=== PATIENT | male | born 1955 | race Caucasian/White ===

== ENCOUNTER 2021-01-04 07:49 | Day surgery (SDC) | payer OTHER ==
[~2021-01-04] VITALS: Ht 175.3 cm; Wt 109.5 kg
--- NOTE | 2021-01-04 08:15 | NUR ---
01/04/21 0815 Gianna Terry 1 TRY RIGHT HAND VALVE
== END 2021-01-04 10:17 | disposition home or self-care (01) ==
LOC: ORSCSDS 07:49
PROVIDERS: Student in an Organized Health Care Education/Training Program
PROC: 0DB68ZX Excision of Stomach, Via Natural or Artificial Opening Endoscopic, Diagnostic (ICD-10-PCS; principal; 2021-01-04 09:00)
PROC: 0DB58ZX Excision of Esophagus, Via Natural or Artificial Opening Endoscopic, Diagnostic (ICD-10-PCS; principal; 2021-01-04 09:00)
PROC: 0DBN8ZX Excision of Sigmoid Colon, Via Natural or Artificial Opening Endoscopic, Diagnostic (ICD-10-PCS; principal; 2021-01-04 09:00)
DX: K92.1 Melena (principal); D12.5 Benign neoplasm of sigmoid colon; K22.70 Barrett's esophagus without dysplasia; K21.9 Gastro-esophageal reflux disease without esophagitis; K57.30 Diverticulosis of large intestine without perforation or abscess without bleeding; K62.89 Other specified diseases of anus and rectum; K64.8 Other hemorrhoids; E66.9 Obesity, unspecified; Z68.36 Body mass index [BMI] 36.0-36.9, adult
CPT/HCPCS: 88305; 88342; J2405; J2704; J7120

== ENCOUNTER 2022-02-04 07:36 | Day surgery (SDC) | payer OTHER ==
[~2022-02-04] VITALS: Ht 175.3 cm; Wt 109.2 kg
[2022-02-04] MEDS ORDERED: OMEP20ER (07:55)
--- NOTE | 2022-02-04 09:13 | NUR ---
02/04/22 0913 MATTHIAS EMANUEL CHECKED ON PT AT 9AM. STILL AT BEDSIDE. DOING WELL.
== END 2022-02-04 10:35 | disposition home or self-care (01) ==
LOC: ORSCSDS 07:36
PROVIDERS: Student in an Organized Health Care Education/Training Program
PROC: 0DBE8ZX Excision of Large Intestine, Via Natural or Artificial Opening Endoscopic, Diagnostic (ICD-10-PCS; principal; 2022-02-04 09:00)
PROC: 0DBN8ZX Excision of Sigmoid Colon, Via Natural or Artificial Opening Endoscopic, Diagnostic (ICD-10-PCS; principal; 2022-02-04 09:00)
DX: Z12.11 Encounter for screening for malignant neoplasm of colon (principal); Z86.010 Personal history of colon polyps; K63.5 Polyp of colon; K57.30 Diverticulosis of large intestine without perforation or abscess without bleeding; K64.8 Other hemorrhoids; K62.89 Other specified diseases of anus and rectum; Z85.51 Personal history of malignant neoplasm of bladder; K21.9 Gastro-esophageal reflux disease without esophagitis; Z79.899 Other long term (current) drug therapy
CPT/HCPCS: 88305; J2704; J7120

== ENCOUNTER 2025-11-11 10:09 | Inpatient (IN) | payer OTHER ==
[~2025-11-11] VITALS: Ht 175.3 cm; Wt 106.6 kg
[~2025-11-11 10:09] MED LIST: OMEP20ER PO
[2025-11-11] MEDS ORDERED: ROSUVASTATIN CA10 MG PO (12:35)
[2025-11-11 12:41] LABS: Hematocrit 36.8 % (37.0-53.0); Hemoglobin 12.2 g/dL (13.5-17.5); Mean Corpuscular HGB Conc 33.2 g/dL (31.5-36.5); Mean Corpuscular Volume 89 fL (80-100); NRBC ABSOLUTE 0.00 K/mm3 (0.00-0.02); NRBC Auto 0.0 /100 WBC (0.0-0.2); Platelet Count 385 K/mm3 (150-400); RDW Coefficient Variation 14.4 % (11.7-14.2); RDW Standard Deviation 47.2 fL (35.1-46.3)
[2025-11-11 12:57] LABS: Alanine Aminotransfer (ALT/SGP 594.0 U/L (12-78); Albumin, Blood 3.1 g/dL (3.4-5.0); Albumin/Globulin Ratio 0.7 (0.8-1.8); Anion Gap 12.0 mmol/L (3-11); Aspartate Aminotrans (AST/SGOT 389.0 U/L (12-37); Bilirubin, Total 3.3 mg/dL (0.1-1.0); Blood Urea Nitrogen 20.0 mg/dL (8-24); CO2, Blood 26.0 mmol/L (21-32); Calcium, Blood 9.5 mg/dL (8.5-10.1); Chloride, Blood 105.0 mmol/L (98-108); Creatinine, Blood 0.91 mg/dL (0.60-1.20); Globulin, Blood 4.2 g/dL (2.2-4.0); Glucose, Blood 199.0 mg/dL (70-99); Potassium, Blood 3.9 mmol/L (3.5-5.5); Sodium, Blood 139.0 mmol/L (136-145); Total Protein, Blood 7.3 g/dL (6.4-8.2)
[2025-11-11 13:17] LABS: BAND PERCENT MAN 2 % (0-8); BASOPHILS ABSOLUTE MAN 0.00 K/mm3 (0.00-0.23); BASOPHILS PERCENT MAN 0 % (0-2); EOSINOPHILS ABSOLUTE MAN 0.43 K/mm3 (0.00-0.68); EOSINOPHILS PERCENT MAN 2 % (0-6); LYMPHOCYTES ABSOLUTE MAN 0.65 K/mm3 (0.84-5.20); LYMPHOCYTES PERCENT MAN 3 % (21-46); MONOCYTES ABSOLUTE MAN 1.52 K/mm3 (0.16-1.47); MONOCYTES PERCENT MAN 7 % (4-13); NEUTROPHILS ABSOLUTE MAN 19.11 K/mm3 (1.96-9.15); SEG NEUTROPHILS PERCENT MAN 86 % (41-73)
[2025-11-11] MEDS ORDERED: Piperacillin/Tazobactam Sod 4.5 GM in NS 100 ML IV ONE (13:40)
[2025-11-11] MEDS ORDERED: NS 1,000 ML IV SCH (13:40)
[2025-11-11] MEDS ORDERED: Pantoprazole Sodium 40 MG Injection IV ONE (13:40)
[2025-11-11] MEDS ORDERED: HYDROmorphone HCl/Pf 1MG SYR IV ONE (13:45)
[2025-11-11] MEDS ORDERED: Ondansetron HCl 2 MG / ML 2ML Vial IV ONE (13:45)
[2025-11-11 14:09] LABS: Prothrombin Time Results 11.4 Sec (9.7-11.5)
[2025-11-11] MEDS ORDERED: FLU VACC TS2025(65UP)/MF59C/PF 45 MCG/0.5 ML SYRINGE IM SCH (18:35)
[2025-11-11] MEDS ORDERED: Ondansetron HCl 2 MG / ML 2ML Vial IV PRN (18:35)
[2025-11-11] MEDS ORDERED: HYDROmorphone HCl/Pf 1MG SYR IV PRN (18:35)
[2025-11-11 20:37] VITALS: BP 112/86
--- NOTE | 2025-11-11 22:28 | NUR ---
ADMIT NOTE HANDOFF RECEIVED FROM DIRECT OF REAL ESTATE JONATHAN. PT ARRIVED TO FLOOR VIA GURNEY. PERSONAL POSSESSIONS WITH PT. PT ORIENTED TO UNIT. CALL BUTTON WITHIN REACH
[2025-11-12 03:41] VITALS: BP 125/77
--- NOTE | 2025-11-12 04:23 | NUR ---
SHIFT SUMMARY ADMITTED FOR PANCREATITIS. FULL CODE. POSSIBILITY OF GALLSTONE PASSED. BLOOD CULTURES PENDING. PLAN IS FOR NPO/GI REST, IV FLUIDS. HE IS A&O X4, STANDBY ASSIST - BRP. IV FLUIDS INFUSING. HE DENIES PAIN TO ME. HE IS ON RA. SON IS AT BEDSIDE. NO NEW CONCERNS.
[2025-11-12 06:00] LABS: BASOPHILS ABSOLUTE AUTO 0.02 K/mm3 (0.00-0.23); BASOPHILS PERCENT AUTO 0 % (0-2); EOSINOPHILS ABSOLUTE AUTO 0.02 K/mm3 (0.00-0.68); EOSINOPHILS PERCENT AUTO 0 % (0-6); Hematocrit 33.4 % (37.0-53.0); Hemoglobin 11.0 g/dL (13.5-17.5); IMMATURE GRAN ABSOLUTE AUTO 0.08 K/mm3 (0.00-0.10); IMMATURE GRAN PERCENT AUTO 1 % (0-1); LYMPHOCYTES ABSOLUTE AUTO 0.85 K/mm3 (0.84-5.20); LYMPHOCYTES PERCENT AUTO 6 % (21-46); MONOCYTES ABSOLUTE AUTO 1.35 K/mm3 (0.16-1.47); MONOCYTES PERCENT AUTO 10 % (4-13); Mean Corpuscular HGB Conc 32.9 g/dL (31.5-36.5); Mean Corpuscular Volume 90 fL (80-100); NEUTROPHILS ABSOLUTE AUTO 11.02 K/mm3 (1.96-9.15); NEUTROPHILS PERCENT AUTO 83 % (41-73); NRBC ABSOLUTE 0.00 K/mm3 (0.00-0.02); NRBC Auto 0.0 /100 WBC (0.0-0.2); Platelet Count 293 K/mm3 (150-400); RDW Coefficient Variation 14.7 % (11.7-14.2); RDW Standard Deviation 48.5 fL (35.1-46.3)
[2025-11-12 06:29] LABS: Alanine Aminotransfer (ALT/SGP 382.0 U/L (12-78); Albumin, Blood 2.6 g/dL (3.4-5.0); Albumin/Globulin Ratio 0.7 (0.8-1.8); Anion Gap 8.0 mmol/L (3-11); Aspartate Aminotrans (AST/SGOT 162.0 U/L (12-37); Bilirubin, Total 5.2 mg/dL (0.1-1.0); Blood Urea Nitrogen 18.0 mg/dL (8-24); CO2, Blood 27.0 mmol/L (21-32); Calcium, Blood 9.5 mg/dL (8.5-10.1); Chloride, Blood 105.0 mmol/L (98-108); Creatinine, Blood 1.09 mg/dL (0.60-1.20); Globulin, Blood 3.9 g/dL (2.2-4.0); Glucose, Blood 174.0 mg/dL (70-99); Potassium, Blood 4.0 mmol/L (3.5-5.5); Sodium, Blood 136.0 mmol/L (136-145); Total Protein, Blood 6.5 g/dL (6.4-8.2)
[2025-11-12 08:28] VITALS: BP 133/82
[2025-11-12] MEDS ORDERED: Enoxaparin 40 MG/0.4 ML SYR SC SCH (09:00)
[2025-11-12 16:10] VITALS: BP 146/94
--- NOTE | 2025-11-12 18:15 | NUR ---
PT A/OX4. PLEASANT AND COOPERATIVE WITH CARE. INDEPENDENT IN ROOM. TAKES MEDS WHOLE WITH WATER. PTS DIET WAS UPGRADED FROM NPO TO REGULAR PER DR. BERRIOS ORDERS. PT HAS BEEN TOLERATING HIS REGULAR DIET WELL. NO N/V THIS SHIFT. ONLY PAIN COMPLAINT WAS OF A HEADACHE WHICH WENT AWAY AFTER PT WAS GIVEN COFFEE. PT IS CURRENTLY IN BED WATCHING TELEVISION. LR IS RUNNING AT 150. BED IS LOCKED AND IN THE LOWEST POSITION. NO ACUTE NEEDS AT THIS TIME.
[2025-11-12 19:19] VITALS: BP 141/87
--- NOTE | 2025-11-12 22:42 | NUR ---
CALL RECEIVED FROM LAB WITH "POSITIVE BLOOD CULTURES OF GM - BACILLI". CALL PLACED TO ON DAVID (DR ALVAREZ), NOTIFIED AND ORDERED ONE TIME IV CEFTRAXONE ONE GM NOW.
[2025-11-12] MEDS ORDERED: CefTRIAXone Sodium 1,000 MG in NS 100 ML IV ONE (22:45)
--- NOTE | 2025-11-13 03:28 | NUR ---
MANAGER PRIVATE SUMMARY A/O X 4. VSS. DENIED PAIN WHEN ASKED. TOLERATING REG DIET. COOPERATIVE WITH CARE. AFFECT ATTENTIVE. LAB RESULTS + FOR GM - BACCILLI. MD NOTIFIED AND ORDERED/PT RECEIVED ANTIBIOTIC - SEE MAR FOR DETAILS. HAS BEEN RESTING QUIETLY WITH INTERMITTENT INTERRUPTIONS WHEN IV PUMP NEEDING ADDRESSED. IVF OF LR INFUSING AT 150 ML/HR. NO C/O VOICED. RESPS EVEN. CALL LIGHT IN REACH, RAILS UP X 2 AND BED IN LOW POSITION FOR SAFETY. WILL CONT TO MONITOR
[2025-11-13 04:17] VITALS: BP 132/89
[2025-11-13 05:46] LABS: BASOPHILS ABSOLUTE AUTO 0.02 K/mm3 (0.00-0.23); BASOPHILS PERCENT AUTO 0 % (0-2); EOSINOPHILS ABSOLUTE AUTO 0.11 K/mm3 (0.00-0.68); EOSINOPHILS PERCENT AUTO 2 % (0-6); Hematocrit 31.5 % (37.0-53.0); Hemoglobin 10.8 g/dL (13.5-17.5); IMMATURE GRAN ABSOLUTE AUTO 0.02 K/mm3 (0.00-0.10); IMMATURE GRAN PERCENT AUTO 0 % (0-1); LYMPHOCYTES ABSOLUTE AUTO 0.91 K/mm3 (0.84-5.20); LYMPHOCYTES PERCENT AUTO 13 % (21-46); MONOCYTES ABSOLUTE AUTO 0.88 K/mm3 (0.16-1.47); MONOCYTES PERCENT AUTO 12 % (4-13); Mean Corpuscular HGB Conc 34.3 g/dL (31.5-36.5); Mean Corpuscular Volume 89 fL (80-100); NEUTROPHILS ABSOLUTE AUTO 5.29 K/mm3 (1.96-9.15); NEUTROPHILS PERCENT AUTO 73 % (41-73); NRBC ABSOLUTE 0.00 K/mm3 (0.00-0.02); NRBC Auto 0.0 /100 WBC (0.0-0.2); Platelet Count 264 K/mm3 (150-400); RDW Coefficient Variation 14.6 % (11.7-14.2); RDW Standard Deviation 47.8 fL (35.1-46.3)
[2025-11-13 06:13] LABS: C-REACTIVE PROTEIN, EXT RANGE 8.64 mg/dL (0.000-0.300); Magnesium, Blood 1.7 mg/dL (1.6-2.4)
[2025-11-13 06:46] LABS: Alanine Aminotransfer (ALT/SGP 253.0 U/L (12-78); Albumin, Blood 2.6 g/dL (3.4-5.0); Albumin/Globulin Ratio 0.7 (0.8-1.8); Anion Gap 8.0 mmol/L (3-11); Aspartate Aminotrans (AST/SGOT 88.0 U/L (12-37); Bilirubin, Total 3.9 mg/dL (0.1-1.0); Blood Urea Nitrogen 14.0 mg/dL (8-24); CO2, Blood 25.0 mmol/L (21-32); Calcium, Blood 8.8 mg/dL (8.5-10.1); Chloride, Blood 104.0 mmol/L (98-108); Creatinine, Blood 1.06 mg/dL (0.60-1.20); Globulin, Blood 3.9 g/dL (2.2-4.0); Glucose, Blood 135.0 mg/dL (70-99); Phosphorus, Blood 2.5 mg/dL (2.5-4.9); Potassium, Blood 3.6 mmol/L (3.5-5.5); Sodium, Blood 133.0 mmol/L (136-145); Total Protein, Blood 6.5 g/dL (6.4-8.2)
[2025-11-13 07:09] VITALS: BP 136/86
--- NOTE | 2025-11-13 13:06 | NUR ---
PT DISCHARGED AT 1215 ESCORTED OUT WITH HIS AND SON BY THIS RN. DISHCARGE PACKET AND EDUCATION WAS PROVIDED AND VERBALLY DISCUSSED WITH THE PT AND HIS FAMILY AT THE BEDSIDE BY THIS RN.
== END 2025-11-13 12:20 | disposition home or self-care (01) | DRG 439 ==
LOC: ER 10:09 → MEDS 18:31
PROVIDERS: Emergency Medicine; Family Medicine; ADMIT Family Medicine
DX: K85.10 Biliary acute pancreatitis without necrosis or infection (principal); E87.20 Acidosis, unspecified; K80.20 Calculus of gallbladder without cholecystitis without obstruction; K21.9 Gastro-esophageal reflux disease without esophagitis; K76.0 Fatty (change of) liver, not elsewhere classified; K82.8 Other specified diseases of gallbladder; Z85.51 Personal history of malignant neoplasm of bladder
CPT/HCPCS: 36415; 74177; 76705; 80053; 83605; 83690; 83735; 84100; 84484; 85025; 85610; 85730; 86140; 87040; 87077; 87186; 93005; 93010; 96365-59; 96375; 99285-25; J0696; J1171; J1650; J2405; J2470; J2543; J7030; J7120; Q9967